=== PATIENT | male | born 1960 | race Caucasian/White ===

== ENCOUNTER 2017-01-03 15:40 | Emergency (ER) | payer SELFPAY ==
[2017-01-03 15:41] VITALS: BP 160/86; PULSE 122; RESP 20; TEMP 98.8; O2SAT 97
[2017-01-03] MEDS ORDERED: HYDR25TA5 PO (17:17)
[2017-01-03] MEDS ORDERED: DULA10IN SQ (17:17)
[2017-01-03] MEDS ORDERED: AMLO5TAB2 PO (17:17)
[2017-01-03] MEDS ORDERED: DULO1CAP3 PO (17:17)
[2017-01-03] MEDS ORDERED: VALS1TAB70 PO (17:17)
[2017-01-03] MEDS ORDERED: ZOCO20TA PO (17:17)
[2017-01-03] MEDS ORDERED: METF1000 PO (17:17)
[2017-01-03] MEDS ORDERED: CYCL1TAB29 PO (17:37)
[2017-01-03] MEDS ORDERED: HYDR-3535 PO (17:37)
== END 2017-01-03 16:05 | disposition left against medical advice (07) ==
LOC: NED 15:40
DX: M54.9 Dorsalgia, unspecified (principal)
CPT/HCPCS: 99281

== ENCOUNTER 2017-01-03 17:00 | Emergency (ER) | payer BC ==
[~2017-01-03] VITALS: Ht 162.6 cm; Wt 112.5 kg
[2017-01-03 17:05] VITALS: BP 157/90; PULSE 104; RESP 18; TEMP 98; O2SAT 96
[2017-01-03] MEDS ORDERED: DULA10IN SQ (17:17)
[2017-01-03] MEDS ORDERED: DULO1CAP3 PO (17:17)
[2017-01-03] MEDS ORDERED: AMLO5TAB2 PO (17:17)
[2017-01-03] MEDS ORDERED: VALS1TAB70 PO (17:17)
[2017-01-03] MEDS ORDERED: HYDR25TA5 PO (17:17)
[2017-01-03] MEDS ORDERED: ZOCO20TA PO (17:17)
[2017-01-03] MEDS ORDERED: METF1000 PO (17:17)
[2017-01-03] MEDS ORDERED: HYDR-3535 PO (17:37)
[2017-01-03] MEDS ORDERED: CYCL1TAB29 PO (17:37)
--- NOTE | 2017-01-03 17:38 | PD ---
HPI Chief Complaint: Back/ Neck Pain or Injury Time Seen by Provider: 17:32 Travel History International Travel<30 days: No Contact w/Intl Traveler<30days: No Traveled to known affect area: No History of Present Illness HPI This 56-year-old male is complaining of low back pain. Says that 3 days ago he twisted his back and since then has had a lot of pain in her back. It occasionally goes down his legs. he has not noted any numbness or tingling. He had some back pain several years ago but generally does not have it. He has a history of diabetes. He has not had any fever.. PFSH Past Medical History Hx Anticoagulant Therapy: No Cardiovascular Problems: Yes (HTN, CHOL) High Cholesterol: Yes Diabetes: Yes Patient Takes Glucophage: Yes Hypertension: Yes Past Surgical History Appendectomy: Yes Other Surgery: Yes (PART OF COLON REMOVED) Social History Alcohol Use: Yes Tobacco Use: No Substance Use: No Allergies-Medications (Allergen,Severity, Reaction): Coded Allergies: No Known Allergies (Unverified , 01/03/17) Reported Meds & Prescriptions Reported Meds & Active Scripts Active Reported Trulicity Inj (Dulaglutide Inj) 0.75 Mg/0.5 Ml Pen 0.75 Mg SQ Q7D Zocor (Simvastatin) 20 Mg Tab 20 Mg PO DAILY Amlodipine (Amlodipine Besylate) 5 Mg Tab 5 Mg PO DAILY Hydrochlorothiazide 25 Mg Tab 25 Mg PO DAILY Valsartan 320 Mg Tab 320 Mg PO DAILY Duloxetine DR (Duloxetine HCl) 60 Mg Capdr 60 Mg PO BID Metformin (Metformin HCl) 1,000 Mg Tab 1,000 Mg PO BIDPC With meals Review of Systems General / Constitutional: No: Fever, Chills Eyes: No: Diploplia HENT: No: Lightheadedness Cardiovascular: No: Chest Pain or Discomfort, Palpitations Respiratory: No: Cough, Shortness of Breath Gastrointestinal: No: Vomiting, Diarrhea Genitourinary: No: Urgency Musculoskeletal: Positive: Myalgias, Pain Skin: No Rash Neurologic: No: Weakness, Dizziness Physical Exam Narrative GENERAL: Well-developed male SKIN: Focused skin assessment warm/dry. HEAD: Atraumatic. Normocephalic. EYES: Pupils equal and round. No scleral icterus. No injection or drainage. ENT: No nasal bleeding or discharge. Mucous membranes pink and moist. NECK: Trachea midline. No JVD. CARDIOVASCULAR: Regular rate and rhythm. No murmur appreciated. RESPIRATORY: No accessory muscle use. Clear to auscultation. Breath sounds equal bilaterally. GASTROINTESTINAL: Abdomen soft, non-tender, nondistended. Hepatic and splenic margins not palpable. MUSCULOSKELETAL: No obvious deformities. No clubbing. No cyanosis. No edema. There is some tenderness of the low back. It is not focal NEUROLOGICAL: Awake and alert. No obvious cranial nerve deficits. Motor grossly within normal limits. Normal speech. He has good strength in plantar and dorsiflexion of feet. He has good sensation of the legs. Straight leg raising is painful bilaterally at 30 PSYCHIATRIC: Appropriate mood and affect; insight and judgment normal. Data Data Last Documented VS Vital Signs Date Time Temp Pulse Resp B/P Pulse Ox O2 Delivery O2 Flow Rate FiO2 01/03/17 17:05 98.0 104 18 157/90 96 MDM Medical Decision Making Medical Screen Exam Complete: Yes Emergency Medical Condition: Yes Medical Record Reviewed: Yes Differential Diagnosis Differential includes musculoskeletal back pain, herniated disc, spinal stenosis Narrative Course He does not have any evidence of neurologic deficit and I don't think imaging is warranted. He has been taking ibuprofen and Aleve without relief. I will prescribe some Flexeril and Lortab. This is musculoskeletal pain Diagnosis Primary Impression: Back pain Qualified Code: M54.42 - Acute midline low back pain with bilateral sciatica Scripts Cyclobenzaprine (Flexeril)10 Mg Tab10 Mg PO TID #30 TAB Ref 0 Prov:Matteo eBlle MD 01/03/17 Hydrocodone-Acetaminophen (Lortab)10-325 Mg Tab1 Tab PO Q4H PRN (PAIN) #30 TAB Ref 0 Prov:Matteo Belle MD 01/03/17 Disposition: DISCHARGE HOME Condition: Stable Matteo Belle MD Jan 03, 2017 17:38
== END 2017-01-03 17:44 | disposition home or self-care (01) ==
LOC: PHEFT 17:00
DX: M54.5 Low back pain (principal); I10 Essential (primary) hypertension; E78.00 Pure hypercholesterolemia, unspecified; E11.9 Type 2 diabetes mellitus without complications; X50.0XXA Overexertion from strenuous movement or load, initial encounter; X50.9XXA Other and unspecified overexertion or strenuous movements or postures, initial encounter; Y93.9 Activity, unspecified; Y92.9 Unspecified place or not applicable; Y99.9 Unspecified external cause status
CPT/HCPCS: 99283